=== PATIENT | female | born 1965 | race Caucasian/White ===

== ENCOUNTER 2024-02-27 15:45 | Outpatient (CLI) | payer OTHER, SELFPAY ==
--- NOTE | ~2024-02-27 | XR_ITS ---
XR foot RT min 3V Ordering provider: Miles Villa Jr., DPM History: . CHRONIC ULCER RIGHT FOOT . Comparison: None. FINDINGS: BONES: No acute fracture or dislocation. Hallux valgus. Osteopenia of the bones. Flat foot is seen. C alcaneal spur. Small lucencies in the calcaneus, talus and cuboid bones are noted which may be degene rative. Follow-up advised. JOINT SPACES: Narrowing of the intertarsal joints and tarsometatarsal joints. Narrowing of the subtal ar joint. No tarsal coalition. SOFT TISSUES: Soft tissue swelling over the plantar aspect of the metatarsophalangeal joint area. IMPRESSION: No acute osseous abnormality of the right foot. Reviewed, dictated and finalized at location A.
== END 2024-02-27 15:46 | disposition home or self-care (01) ==
LOC: ANHIMG 15:46
PROVIDERS: PCP Internal Medicine; Visit Provider Podiatrist Foot & Ankle Surgery
DX: L89.899 Pressure ulcer of other site, unspecified stage (principal)
CPT/HCPCS: 73630

== ENCOUNTER 2024-05-10 10:09 | Outpatient (CLI) | payer OTHER, SELFPAY ==
--- NOTE | ~2024-05-10 | US_ITS ---
EXAMINATION: US pelvic complete w TV INDICATION: Postmenopausal bleeding Comparison:No prior studies for comparison. TECHNIQUE: Multiple transabdominal and endovaginal sonographic images of the pelvis performed. FINDINGS: The uterus measures 4.7 x 2.6 x 3.2 cm. The endometrial complex measures 5.5 mm. The ovaries are not visualized. No adnexal masses. There is no free fluid in the pelvis. There are no abnormal masses seen on either side. IMPRESSION: 1. Thickened endomtrial complex. The differential diagnosis includes endometrial hyperplasia, polyp a nd carcinoma. Biopsy is recommended. Reviewed, dictated and finalized at location B. IMPRESSION: 1. Thickened endomtrial complex. The differential diagnosis includes endometria l hyperplasia, polyp and carcinoma. Biopsy is recommended.
== END 2024-05-10 10:10 | disposition home or self-care (01) ==
LOC: MICIMG 10:10
PROVIDERS: PCP Internal Medicine; Visit Provider Nurse Practitioner Obstetrics & Gynecology
DX: N95.0 Postmenopausal bleeding (principal)
CPT/HCPCS: 76830; 76856